=== PATIENT | female | born 1975 ===

== ENCOUNTER 2024-06-09 20:50 | Outpatient (REF) | payer OTHER, SELFPAY | END 2024-06-09 20:51 | disposition home or self-care (01) | LOC: LBN 20:50 | PROVIDERS: Visit Provider Physician Assistant Medical | DX: J02.9 Acute pharyngitis, unspecified (principal) | CPT/HCPCS: 87070 ==

== ENCOUNTER 2025-01-06 14:24 | Emergency (ER) | payer OTHER, SELFPAY ==
[2025-01-06 14:27] VITALS: BP 124/84; PULSE 93; RESP 20; TEMP 36.8; O2SAT 100
--- NOTE | 2025-01-06 14:45 | DI.CT_ITS ---
Exam(s) CT CERVICAL SPINE WO EXAM: CT CERVICAL SPINE WO CLINICAL HISTORY: fall, back and neck pain. TECHNIQUE: Imaging Protocol: Axial computed tomography images with coronal and sagittal reformatted images were created and reviewed CONTRAST MATERIAL: Noncontrast COMPARISON: No exams were available for comparison FINDINGS: Bones: No fracture or subluxation is seen. The alignment of the cervical spine is normal including the cervicovertebral junction and cervicothoracic junction. Discs: There is moderate narrowing of the C5-6 disc space and small endplate osteophytes. The remaining disc spaces are maintained. Soft Tissues: The soft tissues of the neck are unremarkable. No large disk herniations are identified. The visualized portions of the lung apices are clear. No pneumothorax is seen. IMPRESSION: No acute abnormality. The preliminary [facility] report was reviewed. RADIATION DOSE DELIVERED: Total DLP DATA REPOSITORY: All CT scans at this facility are submitted to the National Radiology Data Registry (NRDR) Dose Index Registry (DIR) with the [employer] (A[employer]). RADIATION OPTIMIZATION: All CT scans at this facility use at least one of these dose optimization techniques: automated exposure control; mA and/or kV adjustment per patient size (includes targeted exams where dose is matched to clinical indication); or iterative reconstruction.
--- NOTE | 2025-01-06 14:45 | RT.EKG_ITS ---
APPROVED REPORT Exam: Resting ECG Reason for Exam: chest pain Patient Location: E HR:85 bpm ECG Measurements Heart Rate 85 AXIS KS 145 P 57 QRSd 68 QRS 45 QT 352 T 42 QTc 420 Conclusion Sinus rhythm, rate 85 No interval abnormalities No STEMI No priors available for comparison
--- NOTE | 2025-01-06 14:45 | DI.CT_ITS ---
Exam(s) CT THORACIC SPINE WO CT CHEST W EXAM: CT CHEST W CLINICAL HISTORY: chest pain, left post, fall, TECHNIQUE: Imaging Protocol: Axial computed tomography images with coronal and sagittal reformatted images were created and reviewed. Computer aided detection (CAD) was utilized. Axial, coronal and sagittal images of the thoracic spine were reconstructed from the chest CT in bone and soft tissue algorithm.. CONTRAST MATERIAL: Intravenous: Omnipaque 350 Contrast volume:70 ml. COMPARISON: CT CT THORACIC SPINE WO from 01/06/2025 FINDINGS: Pulmonary parenchyma: No consolidation. No dominant measurable mass. Calcified granuloma medial right lower lobe. Tracheobronchial tree: No bronchiectasis or mucous plugging. Mediastinum and Lidia: No dominant adenopathy or fluid collection. A few small calcified mediastinal nodes. Pleura: No effusion. No pneumothorax. Heart: The heart is not dilated. No coronary artery calcifications are seen. Aorta: Thoracic aorta non-dilated. Mild atherosclerotic changes. Pulmonary arteries: No gross evidence of emboli. Upper abdomen: No acute findings. Bones: Minimal degenerative changes in the spine. No evidence of spine or rib fracture. Soft tissues: Unremarkable. IMPRESSION: No acute abnormality in the chest. No acute abnormality of the thoracic spine. The preliminary [facility] report was reviewed. RADIATION DOSE DELIVERED: Total DLP DATA REPOSITORY: All CT scans at this facility are submitted to the National Radiology Data Registry (NRDR) Dose Index Registry (DIR) with the [employer] (ACR). RADIATION OPTIMIZATION: All CT scans at this facility use at least one of these dose optimization techniques: automated exposure control; mA and/or kV adjustment per patient size (includes targeted exams where dose is matched to clinical indication); or iterative reconstruction.
[2025-01-06 15:05] LABS: Abs Immature Grans 0.03 10^3/uL (0.0-0.06); HCT 39.8 % (36.0-46.0); HGB 13.1 g/dL (11.2-15.7); Immature Grans % 0.5 %; MCH 29.7 pg (27.0-33.0); MCHC 32.9 % (32.0-36.0); MCV 90 fL (80-95); MPV 9.4 fL (8.0-11.0); Platelet Count 289 10^3/uL (130-400); RBC 4.41 10^6/uL (3.93-5.22); RDW 13.0 % (11.7-14.6); RDW-SD 43.1 fL; WBC 6.45 10^3/uL (4.4-10.8)
[2025-01-06] MEDS: Lidocaine 5% Patch 2 PATCH TP (15:08)
[2025-01-06] MEDS: MORPHine 10 MG/ML VIAL 6 MG IVP (15:08)
[2025-01-06 15:21] LABS: Lipase 22 U/L (<53)
[2025-01-06 15:22] LABS: Troponin I < 3 ng/L (<35)
[2025-01-06 15:23] LABS: ALT 12 U/L (10-49); AST 24 U/L (<34); Albumin 4.6 g/dL (3.4-5.0); Alkaline Phosphatase 87 U/L (46-116); Anion Gap 7.3 mmol/L (3-11); BUN 13 mg/dL (9-23); Bilirubin, Total 0.40 mg/dL (0.2-1.2); CO2 28.7 mmol/L (20.0-31.0); Calcium 9.6 mg/dL (8.3-10.6); Chloride 105 mmol/L (98-107); Glucose 106 mg/dL (74-106); Potassium 3.8 mmol/L (3.5-5.1); Sodium 141 mmol/L (136-145); Total Protein 7.3 g/dL (5.7-8.2)
[2025-01-06] MEDS: Omnipaque 350 MG/ML 100 ML BTL IJ (15:28)
[2025-01-06] MEDS: Normal Saline - Diluent 50 ML VIAL IJ (15:28)
[2025-01-06] MEDS: Normal Saline Flush 10 ML SYR IVP (15:29)
--- NOTE | 2025-01-06 15:37 | DI.[facility]_ITS ---
PROCEDURE INFORMATION: Exam: CT Cervical Spine Without Contrast Exam date and time: 01/06/2025 3:20 PM Age: 49 years old Clinical indication: Injury or trauma; Other: Fall, back and neck pain TECHNIQUE: Imaging protocol: Computed tomography of the cervical spine without contrast. COMPARISON: No relevant prior studies available. FINDINGS: Bones: No acute fracture. Mild lordosis straightening. Mild chronic loss of vertebral body height presumed degenerative. No severe spinal canal stenosis. Moderate to severe neural foraminal narrowing at C5-C6. Lungs: Lung apices are normal. Soft tissues: Unremarkable. IMPRESSION: No acute cervical spine fracture. Degenerative changes as noted Dictated and Authenticated by: James Kuhn MD. Orderin Cele Almanzar MD
--- NOTE | 2025-01-06 15:39 | DI.[facility]_ITS ---
Addendum created by James Kuhn MD on 01/06/2025 3:44:55 PM EST: Calcified right lower lobe granuloma. Calcified right hilar and mediastinal lymph nodes Initial report created on 01/06/2025 3:39:31 PM EST: PROCEDURE INFORMATION: Exam: CT Chest With Contrast; Diagnostic Exam date and time: 01/06/2025 3:26 PM Age: 49 years old Clinical indication: Injury or trauma; Blunt trauma (contusions or hematomas) and other: Fall, back and neck pain TECHNIQUE: Imaging protocol: Diagnostic computed tomography of the chest with contrast. 3D rendering (Not supervised by radiologist): MIP and/or 3D reconstructed images were created by the technologist. Contrast material: OMNIPAQUE 350; Contrast volume: 70 ml; Contrast route: INTRAVENOUS (IV); COMPARISON: CT CERVICAL SPINE WO 01/06/2025 3:20 PM FINDINGS: Lungs: Unremarkable. No consolidation. No masses. Pleural spaces: Unremarkable. No pneumothorax. No pleural effusion. Heart: Unremarkable. No cardiomegaly. No pericardial effusion. Lymph nodes: Unremarkable. No enlarged lymph nodes. Vasculature: Unremarkable. No aortic aneurysm. Bones/joints: Unremarkable. No acute fracture. Soft tissues: Unremarkable. IMPRESSION: No acute findings. Dictated and Authenticated by: James Kuhn MD. Orderin Cele Almanzar MD
--- NOTE | 2025-01-06 15:45 | DI.[facility]_ITS ---
PROCEDURE INFORMATION: Exam: CT Thoracic Spine Without Contrast Exam date and time: 01/06/2025 3:26 PM Age: 49 years old Clinical indication: Injury or trauma; Other: Fall, back and rib pain TECHNIQUE: Imaging protocol: Computed tomography of the thoracic spine without contrast. COMPARISON: CT CERVICAL SPINE WO 01/06/2025 3:20 PM FINDINGS: Bones/joints: No acute fracture. Normal alignment. No significant disc bulge or herniation. No severe spinal canal stenosis. No significant neural foraminal narrowing. Soft tissues: Unremarkable. Calcified right lower lobe granuloma and calcified right hilar/mediastinal lymph nodes IMPRESSION: No acute thoracic spine fracture. Dictated and Authenticated by: James Kuhn MD. Orderin Cele Almanzar MD
[2025-01-06 16:23] LABS: Glucose Negative (Negative)
[2025-01-06] MEDS: Ketorolac 15 MG/ML VIAL 7.5 MG IVP (16:25)
--- NOTE | 2025-01-06 16:50 | W.ED.GENAD ---
Discharge Plan Disposition Patient Disposition: Home Condition: Stable Discharge Details Clinical Impression: Contusion of rib on left side, Strain of thoracic spine Primary Care Provider: Unknown,Unknown ED Provider: Jenelle Oakley Home Meds and New Rx's Prescriptions: New diazepam [Valium] 5 mg tablet 5 mg PO BID PRNQty: 8 0RF lidocaine [Lidoderm] 5 % adhesive patch,medicated 1 patch topical DAILY Qty: 15 0RF Rx Instructions: leave on most painful area for up to 12 hrs Continued cyclobenzaprine 10 mg tablet 10 mg PO HS venlafaxine 75 mg capsule,extended release 24hr 75 mg PO DAILY riboflavin (vitamin B2) 25 mg tablet 100 mg PO DAILY prochlorperazine maleate [Compazine] 5 mg tablet 5 mg PO BID PRN rizatriptan 10 mg tablet See Rx Instructions PO .COMPLEX Rx Instructions: take 1 tab at onset of headache; if no relief may repeat 1 tab after at least 2 hrs; max = 3 tabs/24 hr PO topiramate 25 mg capsule, sprinkle 25 mg PO DAILY indomethacin 50 mg capsule 50 mg PO BID Rx Instructions: administer with food or milk aspirin 81 mg tablet 81 mg PO DAILY naproxen 500 mg tablet 500 mg PO BID magnesium aspart,citrate,oxide 400 mg magnesium capsule 400 mg PO DAILY fluticasone furoate 50 mcg/actuation blister with device 1 inh inhalation PRN levothyroxine 175 mcg capsule 175 mcg PO DAILY prednisone 20 mg tablet 40 mg PO DAILY Qty: 10 0RF albuterol sulfate [Ventolin HFA] 90 mcg/actuation HFA aerosol inhaler 2 puff inhalation QID PRN (Reason: shortness of breath or wheezing) Qty: 6.7 0RF (DME) BreatheRite MDI Spacer Spacer See Rx Instructions .Route Qty: 1 0RF Rx Instructions: As directed Discharge Instructions Instructions: Back Muscle Strain (DC), Rib Fracture or Bruised Rib ED Additional Instructions: we will supply you with a spirometer, please use the spirometer 12 times daily Take Motrin 600 mg every 8 hours with food and Tylenol for breakthrough pain You may take the Valium as needed for musculoskeletal pain, do not combine this with any alcohol or within [address] as it can be addictive and make you drowsy Please be reevaluated in 1 week to ensure that your symptoms are improving and return earlier should you have new or worsening complaints Stand Alone Forms: Portal Information, Work Release HPI General Date/Time Provider Initiated Documentation: 01/06/25 14:27. HPI Narrative: This 44-year-old female presents with chest and back pain post fall. She status post bunionectomy and accidentally tripped on the threshold falling backward and landing directly on her back and neck. She now has pain with breathing any sort of movement. She denies any strength or sensation change or abdominal pain. Denies any chance of . Denies any fever or chills. States the pain is much worse today and she has felt some popping sensations which is why she presents. Related Data Home Medications Medication Instructions Recorded Confirmed albuterol sulfate 90 mcg/actuation 2 puff inhalation QID PRN 12/03/24 01/06/25 aerosol inhaler (Ventolin HFA) shortness of breath or wheezing #6.7 grams aspirin 81 mg tablet 81 mg PO DAILY 12/03/24 01/06/25 cyclobenzaprine 10 mg tablet 10 mg PO HS 12/03/24 01/06/25 fluticasone furoate 50 1 inh inhalation PRN 12/03/24 01/06/25 mcg/actuation blister powder for inhalation indomethacin 50 mg capsule 50 mg PO BID 12/03/24 01/06/25 inhalational spacing device #1 ea 12/03/24 01/06/25 (BreatheRite MDI Spacer) levothyroxine 175 mcg capsule 175 mcg PO DAILY 12/03/24 01/06/25 magnesium aspart,citrate,oxide 400 mg PO DAILY 12/03/24 01/06/25 naproxen 500 mg tablet 500 mg PO BID 12/03/24 01/06/25 prednisone 20 mg tablet 40 mg (2 x 20 mg) PO DAILY #10 tabs 12/03/24 01/06/25 prochlorperazine maleate 5 mg 5 mg PO BID PRN 12/03/24 01/06/25 tablet (Compazine) riboflavin (vitamin B2) 25 mg 100 mg PO DAILY 12/03/24 01/06/25 tablet rizatriptan 10 mg tablet See Rx Instructions PO .COMPLEX 12/03/24 01/06/25 topiramate 25 mg sprinkle capsule 25 mg PO DAILY 12/03/24 01/06/25 venlafaxine 75 mg capsule,extended 75 mg PO DAILY 12/03/24 01/06/25 release 24 hr diazepam 5 mg tablet (Valium) 5 mg PO BID PRN #8 tabs 01/06/25 lidocaine 5 % topical patch 1 patch topical DAILY #15 ea 01/06/25 (Lidoderm) Previous Rx's Medication Instructions Recorded albuterol sulfate 90 mcg/actuation 2 puff inhalation QID PRN 12/03/24 aerosol inhaler (Ventolin HFA) shortness of breath or wheezing #6.7 grams inhalational spacing device #1 ea 12/03/24 (BreatheRite MDI Spacer) prednisone 20 mg tablet 40 mg (2 x 20 mg) PO DAILY #10 tabs 12/03/24 diazepam 5 mg tablet (Valium) 5 mg PO BID PRN #8 tabs 01/06/25 lidocaine 5 % topical patch 1 patch topical DAILY #15 ea 01/06/25 (Lidoderm) Allergies Allergy/AdvReac Type Severity Reaction Status Date / Time No Known Allergies Allergy Verified 01/06/25 14:33 General Stated Complaint: Fall/Non TraumaCriteria FILIPPO: 3 Exam Narrative Exam Narrative: Alert and oriented 49-year-old female in no acute distress lungs clear to auscultation reproducible chest pain along the mid axillary and left lateral wall, thoracic midline tenderness, cervical spine Para spinal tenderness neurovascularly intact no abdominal tenderness or flank tenderness appreciated, GCS 15 no visible sign of head trauma, answering questions appropriately pupils equal round reactive to light and accommodation Course Vital Signs Vital signs: Vital Signs Temperature 36.8 C 01/06/25 14:27 Pulse 93 H 01/06/25 14:27 Respiratory Rate 20 01/06/25 14:27 Blood Pressure 124/84 01/06/25 14:27 Pulse Oximetry 100 01/06/25 14:27 Temperature 36.8 C 01/06/25 14:27 Temperature Source Oral 01/06/25 14:27 Pulse 93 H 01/06/25 14:27 Respiratory Rate 20 01/06/25 14:27 Blood Pressure 124/84 01/06/25 14:27 Pulse Oximetry 100 01/06/25 14:27 Oxygen Delivery Method Room Air 01/06/25 14:27 Oxygen Flow Rate 0 01/06/25 14:27 Pain Level 5 01/06/25 15:08 Lab/Test Results Lab/Test Results: Laboratory Tests Range/Units 01/06/25 01/06/25 14:55 16:12 WBC (4.4-10.8) 10^3/uL 6.45 RBC (3.93-5.22) 10^6/uL 4.41 Hgb (11.2-15.7) g/dL 13.1 Hct (36.0-46.0) % 39.8 MCV (80-95) fL 90 MCH (27.0-33.0) pg 29.7 MCHC (32.0-36.0) % 32.9 RDW (11.7-14.6) % 13.0 Plt Count (130-400) 10^3/uL 289 MPV (8.0-11.0) fL 9.4 Immature Gran % % 0.5 Neutrophils % % 68.7 Lymphocytes % % 21.9 Monocytes % % 7.8 Eosinophils % % 0.5 Basophils % % 0.6 Nucleated RBC % (0.0-0.3) % 0.0 Absolute Neutrophils (1.2-6.7) 10^3/uL 4.44 Absolute Lymphocytes (1.2-3.4) 10^3/uL 1.41 Absolute Monocytes (0.1-0.8) 10^3/uL 0.50 Absolute Eosinophils (0.0-0.7) 10^3/uL 0.03 Absolute Basophils (0.0-0.2) 10^3/uL 0.04 Sodium (136-145) mmol/L 141 Potassium (3.5-5.1) mmol/L 3.8 Chloride (98-107) mmol/L 105 Carbon Dioxide (20.0-31.0) mmol/L 28.7 Anion Gap (3-11) mmol/L 7.3 BUN (9-23) mg/dL 13 Creatinine (0.55-1.02) mg/dL 0.69 Est GFR (CKD-EPI 2020) (mL/min/1.73m2) 90.57 Glucose (74-106) mg/dL 106 Calcium (8.3-10.6) mg/dL 9.6 Total Bilirubin (0.2-1.2) mg/dL 0.40 AST (<34) U/L 24 ALT (10-49) U/L 12 Alkaline Phosphatase (46-116) U/L 87 Troponin I (<35) ng/L < 3 Total Protein (5.7-8.2) g/dL 7.3 Albumin (3.4-5.0) g/dL 4.6 Lipase (<53) U/L 22 Urine Color (Yellow) Yellow Urine Clarity (Clear) Clear Urine pH (5-8) 7.0 Ur Specific [place] (1.005-1.025) 1.015 Urine Protein (Neg-Trace) mg/dL Negative Urine Ketones (Negative) mg/dL Negative Urine Blood (Negative) Negative Urine Nitrite (Negative) Negative Urine Bilirubin (Negative) Negative Urine Urobilinogen (Up to 0.2) mg/dL 0.2 Ur Leukocyte Esterase (Negative) Negative Urine Glucose (Negative) mg/dL Negative Medical Decision Making Results: CT chest with contrast, thoracic spine and cervical spine do not show evidence of acute pathology, specifically no pneumothorax or evidence of intrathoracic trauma, no thoracic spine fractures visualized no cervical spine abnormality per radiology interpretation, diagnostic labs are reassuring EKG and urinalysis within normal limits Assessment and plan: I did order CT secondary to trauma significant tenderness and midline thoracic spine tenderness on assessment. The CTs were all reviewed by radiology and negative for acute pathology. Patient still is at risk for developing pneumonia given her level of pain so Valium and Motrin were supplied for home and she was given injection of Toradol prior to leaving. She does of a granuloma which she will need follow-up regarding on her CT scan. She is referred back to PCP for this finding. She also be given a spirometer which she will use 12 times daily. Lidoderm patches were supplied and a work note until Tuesday was given. Discharged home in stable condition with stable vitals return precautions reviewed and patient expressed understanding [facility] All Active Problems (Updated 01/06/25 @ 16:07 by RHEA Saavedra) Strain of thoracic spine (Acute) Contusion of rib on left side (Acute) Bronchitis (Acute) Social History Smoking/Tobacco Use Status: Never Smoking risk assessment performed?: Yes Alcohol Intake: current Alcohol Intake frequency: a few times a month Alcohol type: beer Substance use type: does not use PAWSS Have you Been Recently Intoxicated or Drunk Within the Last 30 days?: No Have you Ever Experienced Previous Episodes of Alcohol Withdrawal?: No Have you ever Experienced Withdrawal Seizures?: No Have you ever Experienced Delirium Tremens(DT)s?: No Have you ever undergone Alcohol Rehabilitation Treatment (i.e, inpt ot outpatient treatment programs)?: No Have you ever Experienced Blackouts?: No Have you ever Combined Alcohol with other Downers within the last 90 days?: No Have you ever Combined Alcohol with any other Substance of Abuse during the last 90 days?: No Positive Blood Alcohol level on Presentation? [PCS.BAL]: No Evidence of Increased Autonomic Activity (i.e. HR>120, tremor, sweating, agitation, nausea)?: No Result: 0
== END 2025-01-06 16:40 | disposition home or self-care (01) ==
PROVIDERS: Emergency Provider Physician Assistant
DX: S29.012A Strain of muscle and tendon of back wall of thorax, initial encounter; W19.XXXA Unspecified fall, initial encounter
CPT/HCPCS: 99284; 99285; 96374; 96375; 36415; 80053; 83690; 93005; 71260; 72125; 72128; 81003; 84484; 85025; 93010; J1885; J2270; J3490